=== PATIENT | female | born 1985 | race Hispanic/Latino ===

== ENCOUNTER 2021-10-11 16:30 | Emergency (ER) | payer OTHER ==
[~2021-10-11] VITALS: Ht 157.5 cm; Wt 58.1 kg
[2021-10-11] MEDS ORDERED: KETOROLAC TROMETHAMINE 30 MG/ML VIAL IM PRN (17:00)
[2021-10-11] MEDS ORDERED: TAMSULOSIN HCL 0.4 MG CAP PO ONE (17:00)
[2021-10-11] MEDS ORDERED: ONDANSETRON HCL INJ 2MG/ML 2ML 2 MG/ML VIAL IV PRN (17:00)
[2021-10-11] MEDS ORDERED: SODIUM CHLORIDE 0.9% 1000ML 1,000 ML IV ONE (17:00)
[2021-10-11 17:09] LABS: BASOPHILS % 0.3 % (0.0-1.0); EOSINOPHILS # (AUTO) 0.1 (0.0-0.4); EOSINOPHILS % 0.8 % (0.0-6.0); HEMATOCRIT 39.1 % (34.2-44.1); LYMPHOCYTES # (AUTO) 2.3 (1.0-3.2); LYMPHOCYTES % 21.7 % (18.0-39.1); MEAN CORPUSCULAR HEMOGLOBIN 27.5 pg (28-32); MEAN CORPUSCULAR HGB CONC 33.2 g/dL (31-35); MEAN CORPUSCULAR VOLUME 82.7 fL (81-99); MONOCYTES # (AUTO) 0.6 (0.2-0.8); MONOCYTES % 5.9 % (4.4-11.3); NEUTROPHILS # (AUTO) 7.5 (2.1-6.9); NEUTROPHILS % 70.9 % (38.7-80.0); PLATELET COUNT 251 x10e3/uL (140-360); RED BLOOD COUNT 4.73 x10e6/uL (3.6-5.1); RED CELL DISTRIBUTION WIDTH 14.1 % (11.7-14.4)
[2021-10-11 17:24] LABS: ALBUMIN 4.1 g/dL (3.5-5.0); ALBUMIN/GLOBULIN RATIO 1.1 (0.8-2.0); ANION GAP 14.6 mmol/L (8-16); CALCIUM 9.3 mg/dL (8.4-10.2); CREATININE, SERUM 0.94 mg/dL (0.57-1.11); POTASSIUM 3.6 mmol/L (3.5-5.1)
[2021-10-11 17:49] LABS: CLARITY,URINE HAZY (CLEAR); COLOR,URINE YELLOW (YELLOW)
[2021-10-11 17:50] LABS: KETONES,URINE NEGATIVE (NEGATIVE); LEUKOCYTE ESTERASE ,URINE NEGATIVE (NEGATIVE); NITRITE,URINE NEGATIVE (NEGATIVE); PROTEIN,URINE DIPSTICK NEGATIVE (NEGATIVE); URINE UROBILINOGEN 0.2 mg/dL (0.2 - 1)
[2021-10-11 18:06] LABS: BACTERIA,URINE MODERATE /HPF; RBC,URINE 0-5 /HPF (0-5)
[2021-10-11 18:07] LABS: AMORPHOUS SEDIMENT,URINE MANY (FEW)
[2021-10-11] MEDS ORDERED: KETOROLAC TROME10 MG PEG (18:48)
[2021-10-11] MEDS ORDERED: ONDANSETRON ODT4 MG PO (18:48)
[2021-10-11] MEDS ORDERED: FLOMAX0.4 MG PO (18:56)
[2021-10-11 19:09] VITALS: BP 135/75
== END 2021-10-11 19:00 | disposition home or self-care (01) ==
LOC: ER 16:45
DX: N20.1 Calculus of ureter (principal)
CPT/HCPCS: 36415; 74176; 80053; 81001; 84702; 85025; 99284; J1885; J2405